=== PATIENT | male | born 1990 ===

== ENCOUNTER 2020-08-25 00:06 | Emergency (ER) | payer SELFPAY ==
[~2020-08-25] VITALS: Ht 157.5 cm; Wt 59.0 kg
[2020-08-25 00:25] VITALS: BP 113/64
== END 2020-08-25 04:03 | disposition left against medical advice (07) ==
LOC: ER 00:06
DX: R10.9 Unspecified abdominal pain (principal); M54.9 Dorsalgia, unspecified; R11.0 Nausea; Z53.21 Procedure and treatment not carried out due to patient leaving prior to being seen by health care provider